=== PATIENT | female | born 1995 | race Caucasian/White ===

== ENCOUNTER 2024-03-30 21:37 | Emergency (ER) | payer MEDICAID ==
[~2024-03-30] VITALS: Ht 157.5 cm; Wt 52.0 kg
[2024-03-30 22:25] VITALS: BP 104/44; PULSE 83; RESP 12; TEMP 98.9; O2SAT 98
== END 2024-03-31 00:03 | disposition home or self-care (01) ==
LOC: ER 21:37
DX: T19.2XXA Foreign body in vulva and vagina, initial encounter (principal); X58.XXXA Exposure to other specified factors, initial encounter; Y93.89 Activity, other specified; Y92.89 Other specified places as the place of occurrence of the external cause; Y99.8 Other external cause status
CPT/HCPCS: 99281; Z7610